=== PATIENT | male | born 1990 | race Caucasian/White ===

== ENCOUNTER → 2019-01-25 | Day surgery (SDC) | payer BC ==
--- NOTE | 2019-01-24 14:42 | Diagnostic Imaging Report ---
Exam: KUB - 2 views Clinical History: Pre admit. Comparison: None. Findings: Bowel gas partially obscures evaluation of the kidneys. There is a 1.1 cm calcification in the expected location of the right renal pelvis or proximal ureter. There is a cluster of calcifications overlying the right mid kidney, measuring 2 to 3 mm. Likely punctate left-sided pelvic calcified phlebolith. Nonobstructive bowel gas pattern. No evidence of acute osseous abnormality. Impression: A 1.1 cm right renal pelvis versus proximal ureteral stone. Likely cluster of 2 to 3 mm right mid pole renal stones. Signed by: Dr. Willian Bermeo MD on 01/24/2019 2:39 PM
[~2019-01-25] MED LIST: BELLADONNA/OPIUM 60 MG SUPP PR ONE; DEXAMETHASONE SOD PHOS INJ 4 MG/ML VIAL ONE; FENTANYL CITRATE/PF 100MCG/2 ML INJ ONE; IOPAMIDOL 610MG/1ML 300 MG/ML VIAL IV ONE; LEVOFLOXACIN 500MG/D5W 100ML 100 ML IV ONE; LIDOCAINE HCL 2% LOCAL INJ 5 ML SDV VIAL INJ ONE; MIDAZOLAM HCL 2 MG/2 ML VIAL ONE; ONDANSETRON HCL INJ 2MG/ML 2ML 2 MG/ML VIAL ONE; PROMETHAZINE HCL (IM) 25 MG/ML VIAL ONE; PROPOFOL IV EMULSION 10 MG/ML 20 ML VIAL ONE; SEVOFLURANE INHAL SOLN 250 ML PEN BTL ONE
--- OUTSIDE RECORDS SUMMARY | 2019-01-25 05:57 | XMS REPORT ---
Author Author [facility] Address Unknown Phone Unavailable Care Team Providers Care Fabric Sourcer Name Role Phone ERIK ADAME Unavailable Unavailable Problems This patient has no known problems. Allergies, Adverse Reactions, Alerts This patient has no known allergies or adverse reactions. Medications This patient has no known medications. Results Test Description Test Time Test Comments Text Results Atomic Results Result Comments ABDOMEN-1VIEW (KUB) 2019-01-24 14:36:00 [place] [address] Patient Name: ROCHELLE ORTEGA MR #: [id number] : 1990 Age/Sex: 28/M Req #: [id number] Adm Physician: Ordered by: ERIK ADAME MD Report #: [id number] Location: OR Room/Bed: Procedure: [id number] DX/ABDOMEN-1VIEW (KUB) Exam Date: 01/24/19 Exam Time: 1415 REPORT STATUS: Signed Exam: KUB - 2 views Clinical History: Pre admit. Comparison: None. Findings: Bowel gas partially obscures evaluation of the kidneys. There is a 1.1 cm calcification in the expected location of the right renal pelvis or proximal ureter. There is a cluster of calcifications overlying the right mid kidney, measuring 2 to 3 mm. Likely punctate left-sided pelvic calcified phlebolith. Nonobstructive bowel gas pattern. No evidence of acute osseous abnormality. Impression: A 1.1 cm right renal pelvis versus proximal ureteral stone. Likely cluster of 2 to 3 mm right mid pole renal stones. Signed by: Dr. Victoria Roper MD on 01/24/2019 2:39 PM Dictated By: VICTORIA ROPER MD 1430 Transcribed By: TONY on 01/24/19 1431 COPY TO: ERIK ADAME MD
[2019-01-25 10:00] VITALS: BP 136/70
--- NOTE | 2019-01-26 17:38 | Operative Report ---
DATE OF PROCEDURE: 01/26/2019 SURGEON: Wilver Sherman MD PREOPERATIVE DIAGNOSES: 1. Right nephrolithiasis. 2. Right hydronephrosis due to stone. 3. Hematuria. POSTOPERATIVE DIAGNOSES: 1. Right nephrolithiasis. 2. Right hydronephrosis due to stone. 3. Hematuria. OPERATIONS PERFORMED: 1. Right extracorporeal shockwave lithotripsy (separate stage procedure performed was a multi-stage and multi-step process in managing the patient's large nephrolithiasis). 2. Cystourethroscopy with bilateral ureteral catheterization and retrograde ureteropyelography (separate procedure performed for workup of hematuria. 3. Interpretation of retrograde ureteropyelography. 4. Supervision of fluoroscopy, no radiologist present. 5. Cystourethroscopy with insertion of right indwelling ureteral stent (separate procedure performed to relieve the hydronephrosis). ANESTHESIA: General. COMPLICATIONS: None. CLINICAL SUMMARY: Morgan Ruff is a 28-year-old man, who never had a stone before. The patient was found to have large nephrolithiasis and is brought for management. He is aware of the risks of bleeding, infection, injury to adjacent structures, need for additional procedures, and elected to proceed. OPERATIVE PROCEDURE IN DETAIL: Informed consent was verified. Morgan Ruff was properly identified, taken to the operating room, placed on the lithotripsy table in supine position. Anesthesia was uneventfully begun. The patient's 12 mm stone was localized with biplanar fluoroscopy. A total of 3000 shocks were delivered with excellent fragmentation noted. The patient was then carefully gently repositioned in the dorsal lithotomy position with all pressure points well padded. His genitalia were prepared and draped in usual sterile fashion. A 21-Dominican cystoscope sheath with visual obturator in place was atraumatically inserted into the patient's urethra, guided down the unremarkable urethra through normal sphincteric region through the normal prostate into normal bladder. Panendoscopy revealed no suspicious lesions, no tumors, no stones, no diverticula. Normally positioned and configured ureteral orifices were identified. The ureteral catheter was used to cannulate each ureter and retrograde ureteral pyelograms were performed. Interpretation of retrograde ureteropyelography: Contrast was instilled in retrograde fashion bilaterally. The left side was unremarkable. There were no tumors, no stones, no diverticula. Unobstructed drainage was observed. The right hand side exhibited normal ureter. The patient's renal pelvis was dilated, it exhibited multiple filling defects corresponding to the stones, fragments as well as to blood clots. There was mild hydronephrosis noted. With cystoscopic and fluoroscopic guidance, the right-sided indwelling ureteral stent was then placed. It was coiled in the patient's kidney as well as the patient's bladder. The retaining suture was cut short. The patient's bladder was drained. Cystoscope was withdrawn. Belladonna and opium suppository was placed revealing a small prostate, smooth, and nonfunctional without any nodules. The patient was uneventfully reversed from anesthesia and taken to recovery room in stable condition. There were no complications to the procedure. He tolerated the procedure well. Explicit postop instructions were given. We will follow the patient up by returning him to the operating room in several weeks for ureteroscopy following stent removal. MD MARIAH Quinonez/ELSI /[id number]
== END | disposition home or self-care (01) ==
LOC: OR 05:55
PROVIDERS: ATTEND Urology
DX: N13.2 Hydronephrosis with renal and ureteral calculous obstruction (principal); K57.90 Diverticulosis of intestine, part unspecified, without perforation or abscess without bleeding; Z88.1 Allergy status to other antibiotic agents; R31.29 Other microscopic hematuria; R80.9 Proteinuria, unspecified; R35.1 Nocturia; R31.0 Gross hematuria; E66.9 Obesity, unspecified; Z87.891 Personal history of nicotine dependence
CPT/HCPCS: 36415; 50590; 52332; 74018; 83970; 84550; C1758; C2617; J1100; J1956; J2001; J2250; J2405; J2550; J2704; Q9967

== ENCOUNTER 2019-01-26 13:13 | Emergency (ER) | payer BC ==
[~2019-01-26] VITALS: Ht 167.6 cm; Wt 93.0 kg
[2019-01-26] MEDS ORDERED: SODIUM CHLORIDE 0.9% 1000ML 1,000 ML IV STA (13:30)
[2019-01-26 13:48] LABS: BASOPHILS # (AUTO) 0.1 (0.0-0.1); BASOPHILS % 0.5 % (0.0-1.0); EOSINOPHILS # (AUTO) 0.2 (0.0-0.4); HEMATOCRIT 42.9 % (38.2-49.6); HEMOGLOBIN 15.2 g/dL (14.0-18.0); LYMPHOCYTES # (AUTO) 2.6 (1.0-3.2); LYMPHOCYTES % 25.4 % (18.0-39.1); MEAN CORPUSCULAR HEMOGLOBIN 29.3 pg (28-32); MEAN CORPUSCULAR HGB CONC 35.4 g/dL (31-35); MEAN CORPUSCULAR VOLUME 82.8 fL (81-99); MONOCYTES # (AUTO) 1.2 (0.2-0.8); MONOCYTES % 11.4 % (4.4-11.3); NEUTROPHILS # (AUTO) 6.2 (2.1-6.9); NEUTROPHILS % 60.4 % (38.7-80.0); PLATELET COUNT 328 x10e3/uL (140-360); RED BLOOD COUNT 5.18 x10e6/uL (4.3-5.7)
[2019-01-26 13:58] LABS: BILIRUBIN,URINE NEGATIVE (NEGATIVE); CLARITY,URINE SL CLOUDY (CLEAR); COLOR,URINE AMBER (YELLOW); KETONES,URINE NEGATIVE (NEGATIVE); LEUKOCYTE ESTERASE ,URINE 1+ (NEGATIVE); NITRITE,URINE NEGATIVE (NEGATIVE); PROTEIN,URINE DIPSTICK 2+ (NEGATIVE); URINE UROBILINOGEN 0.2 mg/dL (0.2 - 1)
[2019-01-26] MEDS ORDERED: ONDANSETRON HCL INJ 2MG/ML 2ML 2 MG/ML VIAL IV ONE ×2 (14:00→15:00)
[2019-01-26] MEDS ORDERED: MORPHINE SULFATE INJ 4 MG/ML INJ 1ML IV ONE ×2 (14:00→15:00)
[2019-01-26 14:05] LABS: INR 0.86; PROTHROMBIN TIME 12.2 seconds (11.9-14.5)
[2019-01-26 14:06] LABS: PARTIAL THROMBOPLASTIN TIME 23.7 seconds (23.8-35.5)
[2019-01-26 14:11] LABS: BACTERIA,URINE FEW /HPF; EPITHELIAL CELLS,URINE FEW /LPF; RBC,URINE >50 /HPF (0-5)
[2019-01-26 14:14] LABS: ALANINE AMINOTRANSFERASE 33 IU/L (0-55); ALBUMIN 4.3 g/dL (3.5-5.0); ALBUMIN/GLOBULIN RATIO 1.2 (0.8-2.0); ALKALINE PHOSPHATASE 90 IU/L (40-150); ANION GAP 13.6 mmol/L (8-16); BLOOD UREA NITROGEN 19 mg/dL (7-26); BUN/CREATININE RATIO 16 (6-25); CARBON DIOXIDE 23 mmol/L (22-29); CHLORIDE 105 mmol/L (98-107); EST GLOMERULAR FILTRATION RATE > 60 ML/MIN (60-); GLUCOSE 109 mg/dL (74-118); POTASSIUM 3.6 mmol/L (3.5-5.1); SODIUM 138 mmol/L (136-145)
--- NOTE | 2019-01-26 15:03 | NUR ---
DR. Jessica ADAME AT BEDSIDE EVALUATING PATIENT
--- NOTE | 2019-01-26 15:08 | Diagnostic Imaging Report ---
EXAM: CT Abdomen and Pelvis WITHOUT contrast INDICATION: ^Stone Protocol, s/p ESWL, RLQ ABD PAIN COMPARISON: KUB 01/24/2019. TECHNIQUE: Abdomen and pelvis were scanned utilizing a multidetector helical scanner from the lung base to the pubic symphysis without administration of IV contrast. Absence of intravenous contrast decreases sensitivity for detection of focal lesions and vascular pathology. Coronal and sagittal reformations were obtained. Routine protocol was performed. IV CONTRAST: None ORAL CONTRAST: Water COMPLICATIONS: None RADIATION DOSE: Total DLP: 644.34 mGy*cm Estimated effective dose: (DLP x 0.015 x size factor) mSv CTDIvol has been reviewed. It is below the limits set by the Radiation Protocol Committee (RPC). Dose modulation, iterative reconstruction, and/or weight based adjustment of the mA/kV was utilized to reduce the radiation dose to as low as reasonably achievable. FINDINGS: LINES and TUBES: Interval placement of a right double-J ureteral stent. LOWER THORAX: Unremarkable HEPATOBILIARY: No focal hepatic lesions. No biliary ductal dilation. GALLBLADDER: No radio-opaque stones or sludge. No wall thickening. SPLEEN: No splenomegaly. PANCREAS: No focal masses or ductal dilatation. ADRENALS: No adrenal nodules KIDNEYS/URETERS: Mild hydronephrosis. No cystic or solid mass lesions. Multiple small right renal stones with the largest measuring 0.45 cm in the interpolar region and 0.9 cm in the inferior pole. 0.35 cm stone in the distal right ureter near the UVJ. Multiple small left renal stones versus Colton plaques. GI TRACT: No abnormal distention, wall thickening, or evidence of bowel obstruction. Appendix is normal. PELVIC ORGANS/BLADDER: Unremarkable. LYMPH NODES: No lymphadenopathy. VESSELS: Unremarkable. PERITONEUM / RETROPERITONEUM: No free air or fluid. BONES: Unremarkable. SOFT TISSUES: Unremarkable. IMPRESSION: 1. Right double-J ureteral stent in place with a 0.35 cm stone in the distal right ureter. 2. Mild right hydronephrosis. Multiple right renal stones with the largest measuring 0.9 cm in the lower pole. Signed by: Dr. Jimenez Michele M.D. on 01/26/2019 3:05 PM
== END 2019-01-26 15:39 | disposition home or self-care (01) ==
LOC: ER 13:13
DX: R10.31 Right lower quadrant pain (principal); R11.0 Nausea; N30.91 Cystitis, unspecified with hematuria; N13.2 Hydronephrosis with renal and ureteral calculous obstruction
CPT/HCPCS: 36415; 74176; 80053; 81001; 85025; 85610; 85730; 87086; 99284; J2270; J2405; J7030

== ENCOUNTER → 2019-02-27 | Day surgery (SDC) | payer BC ==
[~2019-02-27] MED LIST changes: +B&O 60MG R/S 60 MG SUPP PR ONE; -BELLADONNA/OPIUM 60 MG SUPP PR ONE; -PROMETHAZINE HCL (IM) 25 MG/ML VIAL ONE
--- NOTE | 2019-02-27 10:09 | Diagnostic Imaging Report ---
Abdomen, 2 views. History: Renal stones. Comparison: CT scan renal stone protocol 01/26/2019 Findings: There is a right double-J ureteral stent in place. There are 2 small right interpolar renal stones. Several of the stones identified on the prior CT have been fragmented and passed. The intestinal gas pattern is nonobstructive. There no masses. The osseous structures are intact. IMPRESSION: Right double-J ureteral stent and two small interpolar stones. Signed by: Dr. Dez Herzog DO on 02/27/2019 10:06 AM
[2019-02-27 11:40] VITALS: BP 111/54
--- NOTE | 2019-04-18 05:27 | Operative Report ---
DATE OF PROCEDURE: 02/27/2019 SURGEON: Wilver Sherman MD PREOPERATIVE DIAGNOSES: 1. Right nephrolithiasis. 2. Right indwelling ureteral stent. POSTOPERATIVE DIAGNOSES: 1. Right nephrolithiasis. 2. Right indwelling ureteral stent. OPERATION PERFORMED: Note, these were all staged procedures as part of multi-staged and multi-step process in managing the patient's urolithiasis. 1. Cystourethroscopy with complicated removal of right indwelling ureteral stent (separate procedure performed with separate scope for the diagnosis of stent). 2. Right ureteroscopy with holmium laser lithotripsy and extraction of stone (separate procedure performed for the right nephrolithiasis). 3. Radiological services for supervision and interpretation of ureteroscopy. 4. Interpretation of retrograde ureteropyelography. 5. Supervision of fluoroscopy, no radiologist present. ANESTHESIA: General. COMPLICATIONS: None. CLINICAL SUMMARY: Morgan Ruff is a 28-year-old man, who underwent ureteral stenting and a stone procedure. He is brought for a staged procedure. He is aware of the risks of bleeding, infection, injury to adjacent structures, need for additional procedures and elected to proceed. OPERATIVE PROCEDURE IN DETAIL: Informed consent was verified. Morgan Ruff was properly identified, taken to the operating room, placed on the cystoscopy table in supine position. Anesthesia was uneventfully begun. The patient was then carefully and gently repositioned in the dorsal lithotomy position with all pressure points well padded. His genitalia were prepared and draped in usual sterile fashion. The cystoscope sheath with the visual obturator in place was atraumatically inserted in the patient's urethra. It was guided down the unremarkable urethra through the normal sphincteric region into the patient's prostate bed. We went through the prostate bed and entered the patient's bladder where panendoscopy revealed mild erythema around the right ureteral orifice where there was a stent emerging. A guidewire was then placed alongside the stent and guided at the level of the patient's kidney. The stent was then grasped, completely removed, and then discarded. A secondary guidewire was utilized. A flexible ureteroscope was then brought up into the right kidney where we identified stone burden. We also identified the Colton's plaques throughout all of the papilla. The stone was too large to extract. Therefore, holmium laser lithotripsy was utilized in order to fragment the stone into smaller fragments. We then utilized a Nitinol tipless basket with multiple passes in order to remove the various stone fragments. After each pass, it required utilizing the double-lumen ureteral catheter to replace the secondary guidewire in order to work with that. Once all significantly sized stone burden was removed, only very fine sand remained. This sand was irrigated to loosen it from the mucosa so it may pass. No residual stone of significant size remained. We carefully re-examined the ureter as we exited it. It exhibited no lesions, no tumors, no stones. The patient's bladder was drained. Cystoscope was withdrawn. Interpretation of retrograde ureteropyelography: Contrast was instilled in a retrograde fashion via the ureteroscope. There was some fullness of the right-sided collecting system. There was no evidence of extravasation. The ureter was unremarkable. Unobstructed drainage was observed fluoroscopically. The belladonna and opium suppository were placed revealing small prostate that is smooth and nonfluctuant without any nodules. The patient was uneventfully reversed from anesthesia and taken to recovery room in stable condition. There were no complications of the procedure. The patient tolerated the procedure well. Explicit postoperative instructions were given. We will plan to follow the patient up in the office and of course metabolic stone workup will be in order. Wilver Sherman MD [place]/MODL /[id number]
== END | disposition home or self-care (01) ==
LOC: OR 08:06
PROVIDERS: ATTEND Urology
DX: N20.0 Calculus of kidney (principal); N28.89 Other specified disorders of kidney and ureter; Z46.6 Encounter for fitting and adjustment of urinary device; R80.9 Proteinuria, unspecified; R35.1 Nocturia; K57.92 Diverticulitis of intestine, part unspecified, without perforation or abscess without bleeding; E66.9 Obesity, unspecified; Z88.0 Allergy status to penicillin; Z68.31 Body mass index [BMI] 31.0-31.9, adult; Z87.891 Personal history of nicotine dependence
CPT/HCPCS: 52353; 74420; 88300; J1100; J1956; J2001; J2250; J2405; J2704; Q9967; 74018; C1788; J3010